=== PATIENT | female | born 2000 | race Caucasian/White ===

== ENCOUNTER 2019-06-14 11:15 | Emergency (ER) | payer BC, SELFPAY ==
[2019-06-14 11:25] VITALS: BP 132/84; PULSE 109; RESP 18; TEMP 37.7; O2SAT 99
--- NOTE | 2019-06-14 11:30 | ED.URI ---
HPI - URI/Sore Throat General Chief Complaint: Upper Respiratory Infection Stated Complaint: cough Time Seen by Provider: 06/14/19 11:30 Source: patient and RN notes reviewed History of Present Illness HPI Narrative: Patient is a 18-year-old female presents the urgent care with complaints of dry cough and inability to sleep due to postnasal drainage and cough. Patient states that symptoms started approximately 1 week ago and the cough is been lingering. Patient states that she has been using cough drops, Tylenol Cold and flu and NyQuil without much relief. States that she has had some chills and sweats but denies any known fever. No other acute complaints. No acute distress noted. Patient had a plan of care. Related Data Home Medications Medication Instructions Recorded Confirmed medroxyprogesterone [Depo-Provera] 150 mg IM [id number] 03/27/19 03/27/19 bupropion HCl mg PO 06/14/19 dextroamphetamine-amphetamine 5 mg PO DAILY 06/14/19 06/14/19 [Adderall] Allergies Allergy/AdvReac Type Severity Reaction Status Date / Time No Known Allergies Allergy Unknown Verified 06/14/19 11:28 Review of Systems Review of Systems: Narrative: CONSTITUTIONAL: Denies fever, chills, or sweats. EYES: Denies visual changes, redness, or discharge. ENT: Reports of rhinorrhea, postnasal drainage, sinus congestion/pressure CARDIOVASCULAR: Denies chest pain, palpitations, or edema. RESPIRATORY: Reports of dry cough without dyspnea GASTROINTESTINAL: Denies abdominal pain, nausea, vomiting, or diarrhea. GENITOURINARY: Denies dysuria or hematuria. SKIN: Denies rash or itching. MUSCULOSKELETAL: Denies back pain, joint pain, or myalgia. NEUROLOGIC: Denies headache, numbness, or weakness. All other systems reviewed are negative, except as documented in HPI. PMFSH Comments At the time of my signature, I reviewed and agree with the nursing past medical, surgical, social, and family history. There is no relevant family history pertinent to the patient complaint. Exam Narrative: Exam Narrative: GENERAL: This is a well-nourished, well-developed patient, in no apparent distress. Appears fatigued HEAD: normocephalic, atraumatic. EYES: PERRL. Sclera clear/white. Vision is grossly intact. EARS: External ears normal, auditory canals clear and without drainage, TMs normal without perforation. Hearing grossly intact. NOSE: External nose normal with no obvious nasal discharge, bilateral erythemic nares with clear to yellow rhinorrhea THROAT: Mucous membranes moist, posterior pharynx clear. Moderate postnasal drainage NECK: Neck supple CARDIOVASCULAR: Regular rate and rhythm without murmurs, gallops, or rubs. RESPIRATORY: Clear to auscultation. Breath sounds equal bilaterally. No wheezes, rales, or rhonchi. SKIN: warm, intact with no suspicious lesions or rash, good texture and turgor. NEURO: awake, alert, and oriented to person, place and time. There were no obvious focal neurologic abnormalities. EXTREMITIES: No clubbing, cyanosis, or edema. Course Vital Signs Vital signs: Vital Signs Temperature 100 F H 06/14/19 11:25 Pulse Rate 109 H 06/14/19 11:25 Respiratory Rate 18 06/14/19 11:25 Blood Pressure 132/84 06/14/19 11:25 Pulse Oximetry 99 06/14/19 11:25 Temperature 100 F H 06/14/19 11:25 Pulse Rate 109 H 06/14/19 11:25 Respiratory Rate 18 06/14/19 11:25 Blood Pressure 132/84 06/14/19 11:25 Pulse Oximetry 99 06/14/19 11:25 Reviewed MDM - URI/Sore Throat MDM Narrative Medical decision making narrative: Advised the patient to complete steroid regimen as prescribed. Make sure to eat and drink with medication. Use Tessalon Perles as needed for cough. Use Claritin/Zyrtec in conjunction with Flonase nasal spray for congestion and postnasal drainage. Increase fluids and rest. Use humidifier at night. Follow-up with PCP within 2 to 5 days if worsening symptoms or failure to improve. Differential Diagnosis Differential karmen
== END 2019-06-14 11:40 | disposition home or self-care (01) ==
PROVIDERS: Emergency Provider Nurse Practitioner Family; PCP Nurse Practitioner Family
DX: B34.9 Viral infection, unspecified (principal); F90.9 Attention-deficit hyperactivity disorder, unspecified type; F32.9 Major depressive disorder, single episode, unspecified
CPT/HCPCS: 99213; G0463

== ENCOUNTER 2020-05-08 12:16 | Outpatient (NON) | payer BC, SELFPAY ==
[2020-05-09 19:22] LABS: SARS-CoV-2 RNA PCR Negative
== END 2020-05-08 12:17 ==
PROVIDERS: PCP Nurse Practitioner Family; Visit Provider Family Medicine
DX: J01.90 Acute sinusitis, unspecified (principal); Z20.822 Contact with and (suspected) exposure to COVID-19
CPT/HCPCS: C9803; U0003

== ENCOUNTER 2020-05-13 14:01 | Emergency (ER) | payer BC, SELFPAY ==
[2020-05-13 14:03] VITALS: BP 130/83; PULSE 102; RESP 20; TEMP 35.9; O2SAT 100
--- NOTE | 2020-05-13 14:32 | ED.HA ---
HPI - Headache General Chief Complaint: Headache Stated Complaint: migraines x 1 week Time Seen by Provider: 05/13/20 14:07 Source: patient Mode of arrival: ambulatory Limitations: no limitations History of Present Illness HPI Narrative: A 19-year-old female presents to the emergency department with complaints of a headache and swollen lymph nodes. Patient states that she has had some sinus infection and drainage for which she was taking a Z-Jorge prescribed by her primary care provider. She also notes that she has been taking Sudafed and other [id number] remedies. She came in today because of an unrelenting headache noted on her left side. Patient does note that she has a history of migraine headaches and states that this feels like this. She also notes an enlarged lymph node in her left neck that is markedly tender to the touch and swollen. Related Data Home Medications Medication Instructions Recorded Confirmed medroxyprogesterone [Depo-Provera] 150 mg IM [id number] 03/27/19 03/27/19 bupropion HCl mg PO 06/14/19 dextroamphetamine-amphetamine 5 mg PO DAILY 06/14/19 06/14/19 [Adderall] Allergies Allergy/AdvReac Type Severity Reaction Status Date / Time No Known Allergies Allergy Unknown Verified 05/13/20 15:02 Review of Systems Review of Systems: Narrative: CONSTITUTIONAL: Denies fever, chills, or sweats. EYES: Denies visual changes, redness, or discharge. ENT: Denies rhinorrhea, congestion, sore throat, or otalgia. Lymphadenitis in the left anterior cervical chain CARDIOVASCULAR: Denies chest pain, palpitations, or edema. RESPIRATORY: Denies cough or dyspnea. GASTROINTESTINAL: Denies abdominal pain, nausea, vomiting, or diarrhea. GENITOURINARY: Denies dysuria or hematuria. SKIN: Denies rash or itching. MUSCULOSKELETAL: Denies back pain, joint pain, or myalgia. NEUROLOGIC: Denies numbness, dizziness, or weakness. Endorses left-sided headache PSYCHIATRIC: Denies anxiety or depression. Exam Narrative: Exam Narrative: GENERAL: Well-appearing, well-nourished, and in no acute distress. HEAD: Normocephalic, atraumatic. EYES: PERRLA and EOMI. ENT: Nares clear, no rhinorrhea or epistaxis. Mucous membranes moist. Oropharynx without tonsillar hypertrophy exudate or other lesions. Bilateral TMs pearly neal nonbulging NECK: Supple. No adenopathy or masses. No carotid bruits or JVD. Palpable lymph node in the anterior cervical chain approximately 3 cm in diameter CHEST: Clear to auscultation. No respiratory distress. No wheezes rales or rhonchi HEART: Regular rate and rhythm. No murmur heard. Normal peripheral pulses. ABDOMEN: Soft, nontender, nondistended, normal active bowel sounds. EXTREMITIES: Normal range of motion. No edema. SKIN: Warm, dry, no rash. NEURO: No focal deficits. Alert and oriented x3. PSYCH: Normal mood and affect. Course Reevaluation(s) Reevaluation #1: Patient reevaluated and provided care update. She notes that after medications her headache has completely subsided. She is ready to go home. Again discussed the treatment for the lymphadenitis and headache. Patient verbalizes her understanding of the plan will be discharged home. Time: 15:33 Vital Signs Vital signs: Vital Signs Temperature 35.9 C L 05/13/20 14:03 Pulse Rate 102 H 05/13/20 14:03 Respiratory Rate 05/13/20 14:03 Blood Pressure 130/83 05/13/20 14:03 Pulse Oximetry 100 05/13/20 14:03 Temperature 35.9 C L 05/13/20 14:03 Pulse Rate 102 H 05/13/20 14:03 Respiratory Rate 05/13/20 14:03 Blood Pressure 130/83 05/13/20 14:03 Pulse Oximetry 100 05/13/20 14:03 MDM - Headache MDM Narrative Medical decision making narrative: In brief this is a 19-year-old female who came into the emergency department with complaints of lymphadenitis and headache. Patient treated symptomatically for both. She had indicated that she is already been on multiple medications as prescribed by the nurse practitioner
[2020-05-13] MEDS: diphenhydrAMINE HCl INJ 50 MG/ML VIAL 25 MG IV PUSH (14:58)
[2020-05-13] MEDS: KETOROLAC 15 MG/ML VIAL (*BKC) IV PUSH (14:59)
[2020-05-13] MEDS: PROCHLORPERAZINE EDISYLATE 10 MG/2 ML VIAL 5 MG IV PUSH (15:01)
[2020-05-13 15:41] VITALS: BP 121/70; PULSE 99; RESP 18; O2SAT 98
--- NOTE | 2020-05-13 15:42 | PC.NURSE ---
Pt states pain is completely gone at present. Preparing to discharge.
== END 2020-05-13 15:52 | disposition home or self-care (01) ==
PROVIDERS: Emergency Provider Emergency Medicine; PCP Nurse Practitioner Family
DX: G44.52 New daily persistent headache (NDPH) (principal); R59.1 Generalized enlarged lymph nodes
CPT/HCPCS: 96374; 96375; 99284; J0780; J1200; J1885

== ENCOUNTER 2020-05-23 11:21 | Outpatient (CLI) | payer BC, SELFPAY ==
--- NOTE | ~2020-05-23 | US_ITS ---
EXAMINATION: US soft tissue head and neck DATE: 05/23/2020 11:39 INDICATION: 1-2 weeks of cervical lymphadenopathy. TECHNIQUE: Multiple grayscale and Doppler ultrasound images of the region of concern at the left neck were obtained. COMPARISON: None FINDINGS: There are couple hypoechoic masses at the left neck along the left jugular chain likely representing enlarged lymph nodes. The larger measures 4.4 x 2.0 x 2.4 cm and the smaller and more caudal measures 1.5 x 1.2 x 0.9 cm. There is vascular flow on color Doppler at the periphery of the larger mass with a more hypoechoic nearly anechoic central region to the mass which raises possibility of a suppurati ve lymph node progressing towards central abscess formation. IMPRESSION: 1. A couple enlarged left jugular chain lymph nodes, the larger measuring 4.4 x 2.0 x 2.4 cm with sug gestion of central liquefaction which given the provided clinical history is most concerning for supp urative lymph node progressing towards abscess formation. The less likely differential given the prov ided clinical history would include metastatic disease or lymphoma. Would recommend repeat imaging an d/or biopsy should the lesion not respond/resolve as expected with appropriate clinical management. Reviewed, dictated and finalized at location [facility] [employer] IMPRESSION: 1. A couple enlarged left jugular chain lymph nodes, the larger measuring 4.4 x 2.0 x 2.4 cm with suggestion of central liquefaction which given the provided clinical history is most concerning for suppurative lymph node progressing towa rds abscess formation. The less likely differential given the provided clinical history would include metastatic disease or lymphoma. Would recommend repeat i maging and/or biopsy should the lesion not respond/resolve as expected with nelli ropriate clinical management.
== END 2020-05-23 11:22 ==
PROVIDERS: PCP Nurse Practitioner Family; Visit Provider Nurse Practitioner Family
DX: R59.0 Localized enlarged lymph nodes (principal)
CPT/HCPCS: 76536

== ENCOUNTER 2023-05-13 16:18 | Emergency (ER) | payer BC, SELFPAY ==
[2023-05-13 16:31] VITALS: BP 126/74; PULSE 89; RESP 16; TEMP 36.6; O2SAT 99
--- NOTE | 2023-05-13 16:35 | ED.EAR ---
HPI - Ear Problem General Chief complaint: Ear Stated complaint: rt ear pain Source: patient, RN notes reviewed and old records reviewed Mode of arrival: ambulatory Limitations: no limitations History of Present Illness HPI Narrative: 22 year old female presents to [facility] with complaint of right ear pain this started 2 days ago. Patient states has had slight cough, congestion for last several days. MD Complaint: ear pain Location: right ear Duration: constant Severity: moderate Relieving factors: nothing Exacerbating factors: nothing Context: Reports recent illness Treatment prior to arrival: none Related Data Home Medications Medication Instructions Recorded Confirmed medroxyprogesterone 150 mg/mL 150 mg IM [id number] 03/27/19 05/13/23 intramuscular syringe (Depo-Provera) bupropion HCl 150 mg 24 hr tablet, 300 mg PO DAILY 06/14/19 05/13/23 extended release Allergies Allergy/AdvReac Type Severity Reaction Status Date / Time No Known Allergies Allergy Unknown Verified 05/13/23 16:24 Review of Systems Constitutional: Constitutional: Reports no additional constitutional complaints, Denies body ache(s), Denies chills, Denies fatigue, Denies fever(s) and Denies headache(s) Eyes: Eyes: Reports no additional eye complaints and Denies blurry vision ENT: Reports system reviewed and no additional complaints, except as documented, Denies vertigo, Denies dizziness, Denies ear discharge, Reports otalgia, Denies facial pain, Denies headache(s), Reports nasal congestion, Denies nasal discharge, Denies sinus pain, Denies sinus pressure and Denies sore throat Cardiovascular: Cardiovascular: Reports no additional cardiovascular complaints, Denies chest pain, Denies chest pain at rest, Denies rapid heart rate and Denies dyspnea Respiratory: Respiratory: Reports no additional respiratory complaints, Denies chest congestion, Reports cough, Denies pain on inspiration, Denies pain with cough and Denies dyspnea Gastrointestinal: Gastrointestinal: Denies abdominal pain, Denies diarrhea, Denies nausea and Denies vomiting Integumentary/Breasts: Skin/Breast: Denies rash Neurologic: Reports system reviewed and no additional complaints, except as documented, Denies vertigo, Denies dizziness and Denies headache(s) Endocrine: Endocrine: Denies fatigue PMFSH Comments At the time of my signature, I reviewed and agree with the nursing past medical, surgical, social, and family history. There is no relevant family history pertinent to the patient complaint. Exam Const: General: cooperative, healthy appearing, no acute distress and well nourished Nutritional Appearance: well nourished Orientation/consciousness: patient oriented x3 Limitations: no limitations HENMT: Head: normal to inspection and normocephalic Ears: external ears normal, TM normal on the left, mastoids normal, Abnormal EAC present and TM abnormal erythematous on the right and perforated without discharge on the right Face/Nose/Sinus: normal facial exam Face and sinus: normal facial exam Mouth: Yes Normal oral and palatal mucosa present, Yes oropharynx normal and Yes moist mucous membranes Throat: tonsils normal, uvula midline and no uvular edema Eyes: General: appearance normal, both eyes and all related structures Sclera: sclerae normal Pupils: Equal, round and reactive pupils present Resp: Effort & Inspection: normal respiratory effort, able to speak in complete sentences, no audible wheezes, no cough, no respiratory distress and no retractions Auscultation: clear to auscultation bilaterally, no crackles, no rales, no rhonchi and no wheezes Cardio: Rate: regular rate Rhythm: regular rhythm Skin: General skin exam: normal color and no rashes or lesions noted Neuro: General: patient oriented x3 Cranial nerves: Yes Equal, round and reactive pupils present Psych: Appearance: grossly normal Mental Status: mental status grossly normal Speech and movement: N
== END 2023-05-13 16:42 | disposition home or self-care (01) ==
PROVIDERS: Emergency Provider Registered Nurse
DX: H66.91 Otitis media, unspecified, right ear (principal); H72.91 Unspecified perforation of tympanic membrane, right ear; F41.9 Anxiety disorder, unspecified; F32.A Depression, unspecified; Z86.16 Personal history of COVID-19
CPT/HCPCS: 99213; G0463

== ENCOUNTER 2023-07-16 14:53 | Emergency (ER) | payer BC, SELFPAY ==
[2023-07-16 15:12] VITALS: BP 134/73; PULSE 91; RESP 16; TEMP 36.6; O2SAT 100
--- NOTE | 2023-07-16 15:12 | ED.LOWEXIN ---
HPI - Extremity Injury (Lower) General Chief Complaint: Extremity Injury, Lower Stated Complaint: lt leg pain Time Seen by Provider: 07/16/23 15:12 Source: patient Mode of arrival: ambulatory Limitations: no limitations History of Present Illness HPI Narrative: 22-year-old female presented for complaint left lower leg pain for 3 days. Denies injury or overuse. She states she woke in the night with pain, was unable to stay still due to the pain. She states the pain is worse when at rest or lying flat. She is able to ambulate without difficulty, she works as a telephone repairer and has had no difficulties. Reports difficulty sleeping due to the pain. She denies decreased range of motion, numbness, tingling, weakness, swelling, or discoloration of the lower extremity. Taking ibuprofen and using ice without relief Related Data Home Medications Medication Instructions Recorded Confirmed medroxyprogesterone 150 mg/mL 150 mg IM [id number] 03/27/19 07/16/23 intramuscular syringe (Depo-Provera) bupropion HCl 150 mg 24 hr tablet, 300 mg PO DAILY 06/14/19 07/16/23 extended release Allergies Allergy/AdvReac Type Severity Reaction Status Date / Time No Known Allergies Allergy Unknown Verified 07/16/23 15:13 Review of Systems Review of Systems: CONSTITUTIONAL: Denies body aches, fever, chills EYES: Denies visual changes ENT: Denies rhinorrhea, congestion CARDIOVASCULAR: Denies chest pain, palpitations, or edema. RESPIRATORY: Denies cough or dyspnea. GASTROINTESTINAL: Denies abdominal pain, nausea, vomiting, or diarrhea. SKIN: Denies rash, itching, or wounds. MUSCULOSKELETAL: Reports left lower leg pain Denies back pain, or myalgia. NEUROLOGIC: Denies headache, numbness, tingling, or weakness. All systems reviewed & are unremarkable except as noted in HPI and below PMFSH Comments At time of signature, I have reviewed and agree with nursing past medical, surgical, social and family history unless otherwise noted. Please see nursing chart for further information. There is no relevant family history pertinent to the presenting complaint Exam Narrative: GENERAL: Well-appearing CHEST: Speaks in full sentences. No respiratory distress. HEART: Regular rate and rhythm. Normal and equal peripheral pulses. EXTREMITIES: LLE Patient is able to bear weight and ambulate without pain to the left knee. No bruising, swelling, erythema or warmth. The knee is without obvious asymmetry or deformity when compared to the other knee. Patient is able to tolerate full flexion, extension, internal and external rotation. No tenderness to palpation of the patella, no effusion or ballottement. No tenderness over the infrapatellar tendon or proximal fibular head. No quadriceps tenderness. Distal motor and neurovascular status intact. SKIN: Warm, dry, no rash. NEURO: Alert and oriented x3. PSYCH: Normal mood and affect Course Course Emergency Course: Patient is aware of diagnosis, understands and agrees to treatment plan. Anticipatory guidance given. Patient agrees to follow-up as directed and is aware of reasons to seek care at the emergency department. Portions of this record may have been created with voice recognition software Level of Care: Express Care Visit Vital Signs Vital signs: Reviewed MDM - Extremity Injury (Lower) MDM Narrative Medical decision making narrative: Discussed physical exam findings, exam unremarkable. EBENEZER applied. Rx steroid, ortho referral. Advised supportive measures and signs/symptoms to go to the ER. Pt is appropriate for outpt treatment and f/u. Differential Diagnosis Differential diagnosis: Likely acute internal derangement of knee and other (osteoarthritis, patella dislocation, patellar tendonitis, tendon rupture, gout, bakers cyst, septic bursitis, dvt, tibial plateau fracture) Discharge Plan Discharge Clinical Impression: Pain in left lower leg Patient Disposition: Home, Self-Care Condi
[2023-07-16 15:13] VITALS: BP 134/73; PULSE 91; RESP 16; TEMP 36.6; O2SAT 100
== END 2023-07-16 15:30 | disposition home or self-care (01) ==
PROVIDERS: Emergency Provider Nurse Practitioner Family; PCP Nurse Practitioner Family
DX: M79.662 Pain in left lower leg (principal); F41.9 Anxiety disorder, unspecified; F32.A Depression, unspecified; Z86.16 Personal history of COVID-19
CPT/HCPCS: 99213; G0463

== ENCOUNTER 2024-03-25 20:14 | Emergency (ER) | payer BC, SELFPAY ==
[2024-03-25 20:17] VITALS: BP 130/87; PULSE 120; RESP 16; TEMP 36.7; O2SAT 99
--- NOTE | 2024-03-25 20:30 | ED_ITS ---
HPI - Skin/Abscess/Foreign Bdy General Chief complaint: Skin/Abscess/Foreign Body Stated complaint: Cut right palm on can of green beans Time Seen by Provider: 03/25/24 20:24 Source: patient Mode of arrival: ambulatory Limitations: no limitations History of Present Illness HPI narrative: This is a 23-year-old female who presents to the ED for chief complaint of right hand laceration that occurred just prior to arrival. Patient was opening a can of green beans for Thanksgiving and accidentally cut the palm of her hand. Reports a lot of bleeding at the time but bleeding has slowed. Denies numbness, weakness or any further site of injury. Related Data Home Medications Medication Instructions Recorded Confirmed medroxyprogesterone 150 mg/mL 150 mg IM [id number] 03/27/19 07/16/23 intramuscular syringe (Depo-Provera) bupropion HCl 150 mg 24 hr tablet, 300 mg PO DAILY 06/14/19 07/16/23 extended release Allergies Allergy/AdvReac Type Severity Reaction Status Date / Time No Known Allergies Allergy Unknown Verified 03/25/24 20:15 Review of Systems Review of Systems: All systems as dictated in HPI Exam Narrative: GENERAL: Well-appearing, well-nourished, and in no acute distress. MSK: Normal range of motion. No edema. SKIN: 3 cm laceration to the right palm adjacent to the base of the thumb. No active bleeding. NEURO: Alert and oriented x4. No focal deficits. PSYCH: Normal mood and affect. Course Vital Signs Vital signs: Vital Signs Temperature 98.0 F 03/25/24 20:17 Pulse Rate 120 H 03/25/24 20:17 Respiratory Rate 16 03/25/24 20:17 Blood Pressure 130/87 03/25/24 20:17 Pulse Oximetry 99 03/25/24 20:17 Oxygen Delivery Room Air 03/25/24 20:17 Temperature 98.0 F 03/25/24 20:17 Pulse Rate 120 H 03/25/24 20:17 Respiratory Rate 16 03/25/24 20:17 Blood Pressure 130/87 03/25/24 20:17 Pulse Oximetry 99 03/25/24 20:17 Oxygen Delivery Room Air 03/25/24 20:17 Procedures Laceration Laceration 1: Date: 03/25/24 Time: 20:58 Site: hand Side (If applicable): right Size (cm): 3 Description: linear Local Anesthetic: lidocaine 1% and with epi Amount of anesthesia used (mL): 3 Pre-repair: wound explored and irrigated extensively ====== Skin Level ====== Skin layer closed with: prolene Size (cm): 5-0 Number of sutures: 4 Technique: simple, interrupted ====== Subcutaneous Layer ====== ====== Muscle Layer ====== ====== Tendon Layer ====== MDM - Skin/Abscess/Foreign Bdy MDM Narrative Medical decision making narrative: This is a 23-year-old female who presents to the ED for chief complaint of right palm laceration after opening a can. Vitals are normal. Exam shows 3 cm laceration to the right palm. No active bleeding on arrival. Wound was well cleansed and irrigated here in the ED. closed primarily with Prolene sutures. Tdap updated. Laceration instructions given Patient will be discharged in stable condition. Supportive measures discussed and return precautions given. Patient is understanding and agreeable with plan for discharge with PCP follow-up. Discharge Plan Discharge Clinical Impression: Laceration Patient Disposition: Home, Self-Care Condition: Stable Instructions: Antibiotic Form, Laceration (ED) Additional Instructions: Keep wound clean and dry. Do not soak, take baths, or swim until wound is completely healed. If any signs of infection such as redness, swelling, increasing pain, drainage of purulent discharge, streaks up your extremity develop, seek medical attention immediately. Followup with your primary care provider in [7] days for suture removal. Prescriptions: No Action medroxyprogesterone [Depo-Provera] 150 mg/mL Syringe 150 mg IM [id number] bupropion HCl 150 mg tablet extended release 24 hr 300 mg PO DAILY methylprednisolone [Medrol (Jorge)] 4 mg tablets,dose pack See Rx Instructions .ROUTE .COMPLEX Qty: 21 0RF Rx Instructions: orally per package directions Follow-up/Referrals: PHYSICIAN,SUPERVISOR GLUING [Primary Care Provider] - Time of Disposition: 21:00
[2024-03-25] MEDS: TETANUS,DIPHTHERIA,AC PERTUSSIS ADULT (0.5 ML) BOOSTRIX IM (21:00)
== END 2024-03-25 21:36 | disposition home or self-care (01) ==
PROVIDERS: Emergency Provider Physician Assistant
DX: S61.411A Laceration without foreign body of right hand, initial encounter (principal); Z23 Encounter for immunization; W26.8XXA Contact with other sharp object(s), not elsewhere classified, initial encounter; Y93.G1 Activity, food preparation and clean up
CPT/HCPCS: 12002; 90471; 90715; 99282

== ENCOUNTER 2024-06-21 11:28 | Emergency (ER) | payer BC, SELFPAY ==
[2024-06-21 11:40] VITALS: BP 122/71; PULSE 97; RESP 18; TEMP 36.5; O2SAT 99
--- NOTE | 2024-06-21 11:46 | ED_ITS ---
HPI - URI/Sore Throat General Chief Complaint: Upper Respiratory Infection Stated Complaint: Flu Like Time Seen by Provider: 06/21/24 12:20 Source: patient, RN notes reviewed and old records reviewed Mode of arrival: ambulatory Limitations: no limitations History of Present Illness HPI Narrative: 23-year-old female presents to the [facility] with complaints sneezing, nonproductive cough, body aches since Friday, 2 days. Has attempted [id number] treatments Related Data Home Medications ?Medication ?Instructions ?Recorded ?Confirmed ?Last Taken ?Type medroxyprogesterone 150 mg/mL 150 mg IM [id number] 03/27/19 07/16/23 Unknown History intramuscular syringe (Depo-Provera) Allergies Allergy/AdvReac Type Severity Reaction Status Date / Time No Known Allergies Allergy Unknown Verified 06/21/24 11:43 Review of Systems Review of Systems: All systems reviewed & are unremarkable except as noted in HPI and below Constitutional: Constitutional: Reports as per HPI and Reports body ache(s) ENT: Reports as per HPI Cardiovascular: Cardiovascular: Reports no additional cardiovascular c omplaints, Denies chest pain and Denies dyspnea Respiratory: Respiratory: Reports as per HPI, Denies chest congestion, Reports cough and Denies dyspnea Musculoskeletal: Musculoskeletal: Reports no additional musculoskeletal complaints Integumentary/Breasts: Skin/Breast: Reports system reviewed and no additional complaints, except as docu PMFSH Comments At the time of my signature, I reviewed and agree with the nursing past medical, surgical, social, and family history. There is no relevant family history pertinent to the patient complaint. Exam Const: General: cooperative, no acute distress, well developed, alert, tired appearing, uncomfortable and well nourished Nutritional Appearance: well nourished Orientation/consciousness: patient oriented x3 Limitations: no limitations HENMT: Head: normal to inspection Ears: TM normal on the left, EAC's normal, mastoids normal, no periauricular adenopathy and TM abnormal perforated without discharge (HX of perforation 1 year) on the right Eyes: General: appearance normal, both eyes and all related structures Alignment and Position: alignment normal Neck: Neck: normal visual inspection, full ROM, no lymphadenopathy and no meningeal signs Chest: Chest palpation & inspection: normal inspection of the chest Resp: Effort & Inspection: normal respiratory effort and able to speak in complete sentences Auscultation: clear to auscultation bilaterally, no crackles, no rales, no rhonchi and no wheezes Cardio: Rate: regular rate Skin: General skin exam: normal color and no rashes or lesions noted Neuro: General: patient oriented x3, gait normal, moves all extremities and no meningeal signs Cognition (Neuro): normal cognition Speech: normal speech Gait exam (Neuro): Normal gait present Extrem: General: normal to inspection, full ROM, capillary refill normal and normal gait Psych: Appearance: grossly normal and well kempt Mental Status: mental status grossly normal Speech and movement: Normal speech and movement present and Clear speech present Affect: normal affect Attitude: cooperative Course Course Level of Care: Express Care Visit Vital Signs Vital signs: Vital Signs Temperature 97.7 F 06/21/24 11:40 Pulse Rate 97 06/21/24 11:40 Respiratory Rate 18 06/21/24 11:40 Blood Pressure 122/71 06/21/24 11:40 Pulse Oximetry 99 06/21/24 11:40 Oxygen Delivery Room Air 06/21/24 11:40 Temperature 97.7 F 06/21/24 11:40 Pulse Rate 97 06/21/24 11:40 Respiratory Rate 18 06/21/24 11:40 Blood Pressure 122/71 06/21/24 11:40 Pulse Oximetry 99 06/21/24 11:40 Oxygen Delivery Room Air 06/21/24 11:40 Reviewed MDM - URI/Sore Throat MDM Narrative Medical decision making narrative: Patient sitting in exam room. Nontoxic, vitals stable. Patient in no acute distress. Patient with 2 day history of URI symptoms, flu-like symptoms. Flu and COVID tests are negative in clinic. No acute findings noted on exam. Patient is appropriate for outpatient treatment and follow-up Discharge instructions reviewed with patient, as well as provided in writing per nursing staff. The instructions also include specific and strict return/GO TO THE ER as well as f/u information. All questions have been answered, and the patient deny any further questions with discharge and discharge plan. Some parts of this dictation were generated by voice recognition software and may contain typographical and/or grammatical inaccuracies. Differential Diagnosis Differential diagnosis: Likely upper respiratory infection, otitis media, sinusitis, viral infection, bronchitis, influenza and pharyngitis Lab Data Labs: Lab Results 06/21/24 Range/Units 12:09 POC Influenza A Ag Negative (Negative) POC Influenza B Ag Negative (Negative) POC SARS CoV-2 Ag Negative (Negative) Reviewed Critical Care Time Critical Care Time Critical Care Time: No Discharge Plan Discharge Clinical Impression: Influenza-like illness Patient Disposition: Home, Self-Care Condition: Stable Instructions: Antibiotic Form, Upper Respiratory Infection (ED) Additional Instructions: Your rapid COVID test were negative Your rapid flu test was negative Your symptoms are likely due to a viral illness, which is not treated with antibiotics. Typically viral infections last 7-10 days, can linger for couple of weeks. It is very important to treat your symptoms. Drink plenty of water, Gatorade, Pedialyte, ice pops or Jell-O. -Alternate Tylenol and Motrin per package directions for fever or pain. You can alternate every 4 hours -Antihistamine medication such as Zyrtec/Claritin/Fide during the day can help improve symptoms. -doing daily nasal irrigations can help relieve pressure your sinuses. Things like a Neti pot -Use Flonase twice a day for 5 days then daily to help reduce the inflammation and dry up your sinuses. -You can also use Mucinex. Be sure to drink plenty of water with this medication at least 8 ounces with every dose and it is important to drink 8 to 10 glasses of water per day. Water is a natural decongestant -Eat and drink things that are easy to swallow, like tea or soup, or popsicles. -Oral rinses such as: Salt water gargles and/or may use topical anesthetic (eg. Chloraseptic spray) or lozenges to relieve dryness or throat pain). -Frequent hand washing or hand state editor is one of the best ways to prevent spread of infection. -Using a vaporizer or humidifier at night will also help thin secretions and help with coughing up phlegm. -Follow up with primary care provider in 7-10 days if condition is not improving - For new or worsening symptoms go directly to the nearest ER Patient Language: [place] Prescriptions: No Action medroxyprogesterone [Depo-Provera] 150 mg/mL Syringe 150 mg IM [id number] Follow-up/Referrals: PHYSICIAN,PROM BURN OFF OPERATOR [Primary Care Provider] - Juvenal López MD [Physician] - Stand Alone Forms: Work/School Release IP Time of Disposition: 12:32
[2024-06-21 12:14] LABS: EDCOVIDSCREEN Negative (Negative); EDINFLUASCREEN Negative (Negative); EDINFLUBSCREEN Negative (Negative)
--- OUTSIDE RECORDS SUMMARY | 2024-06-21 13:27 | XMS_ITS | Referral Summary ---
Author Organization [facility] Address [address] [place] [address] Care Team Providers Care Agency Sales Management Assistant Name Role Phone Ebony Thao NP Primary Care Provider [phone] Allergies No known active allergies Medications medroxyPROGESTE Ralph (DEPO-PROVERA) 150 mg/mL injection Inject 150 mg into the muscle as instructed every 3 (three) months Active Active Problems Problem Noted Date Diagnosed Date Other infectious mononucleosis without complicat ion 05/18/2020 Chronic tonsillitis 05/18/2020 Memory impairment 12/06/2014 Migraine headache 12/06/2014 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 Social History Tobacco Use Types Packs/Day Years Used Date Smoking Tobacco: Never Smokeless Tobacco: Never Alcohol Use Standard Drinks/Week Comments Yes 0 (1 standard drink = 0.6 oz pur e alcohol) Comments Unknown Sex and Gender Information Value Date Recorded Sex Assigned at Not on file Legal Sex Female 11:29 AM CARE GIVER Gender Identity Not on file Sexual Orientation Not on file Last Filed Vital Signs Vital Sign Reading Time Taken Comments Blood Pressure 114/73 01/25/2015 3:26 PM CDT Pulse 75 01/25/2015 3:26 PM CDT Temperature 36.8 C (98.2 F) 05/18/2020 4:03 PM CARE GIVER Respiratory Rate - - Oxygen Saturation - - Inhaled Oxygen Concentration - - Weight 63.5 kg (140 lb) 05/18/2020 4:03 PM CARE GIVER Height 165.1 cm (5' 5 ) 05/18/2020 4:03 PM CARE GIVER Body Mass Index 23.3 05/18/2020 4:03 PM CARE GIVER Plan of Treatment Not on file Insurance [facility] [employer] Care Teams Agency Sales Management Assistant Relationship Specialty Start Date End Date Ebony Thao NP PCP - General Internal Medicine 05/09/20
--- OUTSIDE RECORDS SUMMARY | 2024-06-21 13:27 | XMS_ITS | Clinical Summary ---
Author Organization 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 Surgical History Surgery Date Site/Laterality Comments TYMPANOSTOMY TUBE PLACEMENT Medical History Medical History Date Comments Hx Other Medical Bilateral ear t ubes 1999,2000,2001 Attention deficit disorder ADHD Ear problems Family History Medical History Relation Name Comments No Known Problems Father No Known Problems Mother Relation Name Status Comments Father Mother Social History Tobacco Use Types Packs/Day Years Used Date Smoking Tobacco: Never Smokeless Tobacco: Never Alcohol Use Standard Drinks/Week Comments Yes 0 (1 standard drink = 0.6 oz pur e alcohol) Comments Unknown Sex and Gender Information Value Date Recorded Sex Assigned at Not on file Legal Sex Female 11:29 AM IMMIGRATION MANAGER Gender Identity Not on file Sexual Orientation Not on file Obstetrics History Last Filed Vital Signs Vital Sign Reading Time Taken Comments Blood Pressure 114/73 01/25/2015 3:26 PM CDT Pulse 75 01/25/2015 3:26 PM CDT Temperature 36.8 C (98.2 F) 05/18/2020 4:03 PM IMMIGRATION MANAGER Respiratory Rate - - Oxygen Saturation - - Inhaled Oxygen Concentration - - Weight 63.5 kg (140 lb) 05/18/2020 4:03 PM IMMIGRATION MANAGER Height 165.1 cm (5' 5 ) 05/18/2020 4:03 PM IMMIGRATION MANAGER Body Mass Index 23.3 05/18/2020 4:03 PM IMMIGRATION MANAGER Plan of Treatment Not on file Insurance [facility] [employer] Care Teams Shoe Reconditioner Relationship Specialty Start Date End Date Ebony Thao NP PCP - General Internal Medicine 05/09/20
== END 2024-06-21 12:35 | disposition home or self-care (01) ==
PROVIDERS: Emergency Provider Nurse Practitioner
DX: J11.1 Influenza due to unidentified influenza virus with other respiratory manifestations (principal); Z20.822 Contact with and (suspected) exposure to COVID-19
CPT/HCPCS: 87426; 87804; 99212; G0463